=== PATIENT | female | born 1940 | race Caucasian/White ===

== ENCOUNTER 2023-08-08 08:25 | Inpatient (IN) ==
[2023-08-08 09:34] LABS: Hematocrit 42.2 % (34.1-44.9); Hemoglobin 13.4 g/dL (11.2-15.7); Mean Cell Volume 87.2 fL (80.0-100.0); Mean Corpuscular HGB Conc 31.8 g/dL (31.0-36.0); Platelet Count 251 K/mcL (140-440); RBC 4.84 M/mcL (3.59-5.38); Red Cell Distribution Width 15.2 % (11.5-14.5); WBC 3.9 K/mcL (4.5-11.0)
[2023-08-08 09:53] LABS: Eosinophils % (Manual) 5 % (0-7); Lymphocytes % 11 % (15-49); Monocytes % (Manual) 9 % (1-12); Platelet Estimate NORMAL (Normal); RBC Morphology NORMAL (Normal); Reactive Lymphocytes 3 % (0-2); Segmented Neutrophils % 72 % (38-78)
[2023-08-08 10:27] LABS: Prothrombin Time 13.3 sec (11.9-14.5)
[2023-08-08 11:06] LABS: ALT/SGPT 34 U/L (<40); AST/SGOT 32 U/L (<32); Albumin 3.6 gm/dL (3.2-5.2); Albumin/Globulin Ratio 1.2 (1.0-2.3); Alkaline Phosphatase 162 U/L (39-117); Bilirubin,Total 0.4 mg/dL (0.1-1.0); Blood Urea Nitrogen 17 mg/dL (8-23); Calcium 9.4 mg/dL (8.6-10.4); Carbon Dioxide 34 mmol/L (22-30); Chloride 82 mmol/L (96-108); Globulin 3.1 gm/dL (2.2-3.7); Glomerular Filtration Rate 90; Glucose 112 mg/dL (70-105)
[2023-08-08] MEDS: FUROSEMIDE 100 MG/10 ML VIAL IV ONE (11:58)
[2023-08-08 13:15] LABS: Appearance,Urine Clear (Clear); Bacteria,Urine Many /hpf (0); Bilirubin,Urine Negative (Negative); Color,Urine Yellow; Culture Indicated,Urine Yes; Glucose,Urine (UA) Negative (Negative); Ketones,Urine Negative (Negative); Leukocyte Esterase,Urine Negative /uL (Negative); Nitrate,Urine Negative (Negative); PH,Urine 6.5 (5.0-9.0); Protein,Urine 30 mg/dL (Negative); Urine Blood Trace-intact ery/mcL (Negative); Urine RBC 2 /hpf (0-3); Urine Squamous Epithelial Cell 0 /hpf (0-4); Urine WBC 1 /hpf (0-4); Urobilinogen,Urine Normal
[2023-08-08] MEDS: cefTRIAXone 1 GM VIAL IM SCH (14:56)
[2023-08-08] MEDS ORDERED: ONDANSETRON 4 MG/2 ML VIAL IV PRN (16:08)
[2023-08-08] MEDS ORDERED: SENNOSIDES 1 TABLET PO PRN (16:08)
[2023-08-08] MEDS ORDERED: BISACODYL 10 MG SUPP.RECT PR PRN (16:08)
[2023-08-08 17:40] LABS: Phosphorous 3.4 mg/dL (2.5-4.5)
[2023-08-08] MEDS: FUROSEMIDE 100 MG/10 ML VIAL IV SCH (19:33)
[2023-08-08] MEDS: 0.9 % SODIUM CHLORIDE 10 ML SYRINGE IV SCH (21:10)
[2023-08-08] MEDS: HEPARIN 5,000 UNIT/ML VIAL SQ SCH (21:10)
[2023-08-08] MEDS ORDERED: 0.9 % SODIUM CHLORIDE 10 ML SYRINGE IV SCH (22:00)
[2023-08-08] MEDS: DOCUSATE SODIUM 100 MG CAPSULE PO SCH (22:22)
[2023-08-09 06:11] LABS: Basophils # (Auto) 0.03 K/mcL (0.00-0.30); Basophils % (Auto) 0.7 % (0.0-2.0); Eosinophils # (Auto) 0.21 K/mcL (0.00-0.70); Eosinophils % (Auto) 5.2 % (0.0-7.0); Hematocrit 42.5 % (34.1-44.9); Hemoglobin 13.2 g/dL (11.2-15.7); Lymphocytes # (Auto) 0.43 K/mcL (1.50-4.80); Lymphocytes % (Auto) 10.6 % (15.5-49.0); Mean Cell Volume 88.9 fL (80.0-100.0); Mean Corpuscular HGB Conc 31.1 g/dL (31.0-36.0); Mean Platelet Volume 8.6 fL (8.8-12.5); Monocytes # (Auto) 0.53 K/mcL (0.10-0.90); Monocytes % (Auto) 13.1 % (1.0-12.0); Neutrophils % (Auto) 70.2 % (38.0-78.0); Platelet Count 214 K/mcL (140-440); RBC 4.78 M/mcL (3.59-5.38); Red Cell Distribution Width 15.2 % (11.5-14.5); WBC 4.1 K/mcL (4.5-11.0)
[2023-08-09 06:18] LABS: Amphetamine Screen,Urine None detected; Barbiturate Screen,Urine None detected; Benzodiazepines Screen,Urine None detected; Cannabinoid Screen,Urine None detected; Cocaine Screen,Urine None detected; Opiate Screen,Urine None detected; Oxycodone, Urine Screen None detected; Phencyclidine Screen,Urine None detected
[2023-08-09 06:40] LABS: ALT/SGPT 26 U/L (<40); AST/SGOT 28 U/L (<32); Albumin 3.4 gm/dL (3.2-5.2); Albumin/Globulin Ratio 1.2 (1.0-2.3); Alkaline Phosphatase 155 U/L (39-117); Bilirubin,Total 0.4 mg/dL (0.1-1.0); Blood Urea Nitrogen 12 mg/dL (8-23); Carbon Dioxide 42 mmol/L (22-30); Chloride 79 mmol/L (96-108); Globulin 2.9 gm/dL (2.2-3.7); Glomerular Filtration Rate 85; Glucose 90 mg/dL (70-105)
[2023-08-09] MEDS: POTASSIUM CHLORIDE 20 MEQ TABLET PO ONE (07:41)
[2023-08-09] MEDS: POTASSIUM CHLORIDE 40 MEQ in DEXTROSE 5% IN WATER 500 ML IV ONE (08:21)
[2023-08-09] MEDS: risperiDONE 0.25 MG TABLET PO SCH (09:20)
[2023-08-09] MEDS: LOSARTAN 25 MG TABLET PO SCH (09:22)
[2023-08-09] MEDS: MULTIVIT,THER IRON,CA,FA & MIN 1 TABLET PO SCH (09:22)
[2023-08-09] MEDS: FISH OIL 1,000 MG CAPSULE PO SCH (09:23)
[2023-08-10 07:13] LABS: Basophils # (Auto) 0.03 K/mcL (0.00-0.30); Basophils % (Auto) 0.7 % (0.0-2.0); Eosinophils # (Auto) 0.15 K/mcL (0.00-0.70); Eosinophils % (Auto) 3.5 % (0.0-7.0); Hematocrit 40.4 % (34.1-44.9); Hemoglobin 12.6 g/dL (11.2-15.7); Lymphocytes # (Auto) 0.54 K/mcL (1.50-4.80); Lymphocytes % (Auto) 12.5 % (15.5-49.0); Mean Corpuscular HGB Conc 31.2 g/dL (31.0-36.0); Mean Platelet Volume 8.8 fL (8.8-12.5); Monocytes # (Auto) 0.62 K/mcL (0.10-0.90); Monocytes % (Auto) 14.4 % (1.0-12.0); Neutrophils % (Auto) 68.9 % (38.0-78.0); Platelet Count 239 K/mcL (140-440); RBC 4.54 M/mcL (3.59-5.38); Red Cell Distribution Width 15.4 % (11.5-14.5); WBC 4.3 K/mcL (4.5-11.0)
[2023-08-10 08:57] LABS: ALT/SGPT 17 U/L (<40); AST/SGOT 22 U/L (<32); Albumin 3.3 gm/dL (3.2-5.2); Albumin/Globulin Ratio 1.2 (1.0-2.3); Alkaline Phosphatase 139 U/L (39-117); Bilirubin,Total 0.4 mg/dL (0.1-1.0); Blood Urea Nitrogen 15 mg/dL (8-23); Carbon Dioxide 42 mmol/L (22-30); Chloride 80 mmol/L (96-108); Globulin 2.7 gm/dL (2.2-3.7); Glomerular Filtration Rate 81; Glucose 97 mg/dL (70-105)
[2023-08-10] MEDS: cefTRIAXone 1 GM VIAL IV SCH (09:31)
[2023-08-10] MEDS: POTASSIUM CHLORIDE 20 MEQ TABLET PO ONE (09:37)
[2023-08-10] MEDS: acetaZOLAMIDE SOD 500 MG VIAL IV ONE ×2 (15:00→16:03)
[2023-08-10] MEDS: SODIUM CHLORIDE NASAL 1 SPRAY BOTTLE NAS PRN (16:03)
[2023-08-10] MEDS: LOSARTAN 25 MG TABLET PO SCH (20:35)
[2023-08-10] MEDS: LACTULOSE 20 GM/30 ML ORAL.SOL PO PRN (20:35)
[2023-08-11 06:24] LABS: Basophils # (Auto) 0.02 K/mcL (0.00-0.30); Basophils % (Auto) 0.4 % (0.0-2.0); Eosinophils # (Auto) 0.12 K/mcL (0.00-0.70); Eosinophils % (Auto) 2.6 % (0.0-7.0); Hemoglobin 12.4 g/dL (11.2-15.7); Lymphocytes # (Auto) 0.71 K/mcL (1.50-4.80); Lymphocytes % (Auto) 15.1 % (15.5-49.0); Mean Cell Volume 89.7 fL (80.0-100.0); Mean Platelet Volume 8.3 fL (8.8-12.5); Monocytes # (Auto) 0.62 K/mcL (0.10-0.90); Monocytes % (Auto) 13.2 % (1.0-12.0); Neutrophils % (Auto) 68.5 % (38.0-78.0); Platelet Count 226 K/mcL (140-440); RBC 4.46 M/mcL (3.59-5.38); Red Cell Distribution Width 15.6 % (11.5-14.5); WBC 4.7 K/mcL (4.5-11.0)
[2023-08-11 07:23] LABS: ALT/SGPT 13 U/L (<40); AST/SGOT 21 U/L (<32); Albumin 3.2 gm/dL (3.2-5.2); Albumin/Globulin Ratio 1.1 (1.0-2.3); Alkaline Phosphatase 135 U/L (39-117); Bilirubin,Direct < 0.2 mg/dL (0-0.3); Bilirubin,Total 0.3 mg/dL (0.1-1.0); Blood Urea Nitrogen 19 mg/dL (8-23); Calcium 9.3 mg/dL (8.6-10.4); Carbon Dioxide 42 mmol/L (22-30); Chloride 83 mmol/L (96-108); Globulin 2.9 gm/dL (2.2-3.7); Glomerular Filtration Rate 81; Glucose 110 mg/dL (70-105); Lactate Dehydrogenase 192 U/L (135-225); Phosphorous 2.8 mg/dL (2.5-4.5); Triglycerides 72 mg/dL (<150); Uric Acid 5.6 mg/dL (2.5-8.0)
[2023-08-11] MEDS: acetaZOLAMIDE SOD 500 MG VIAL IV ONE (08:44)
[2023-08-11] MEDS: METOPROLOL SUCCINATE 50 MG TAB.XL.24H PO SCH (09:41)
[2023-08-11] MEDS: POTASSIUM CHLORIDE 20 MEQ TABLET PO ONE (09:54)
[2023-08-12 06:22] LABS: ALT/SGPT 15 U/L (<40); AST/SGOT 24 U/L (<32); Albumin 3.2 gm/dL (3.2-5.2); Albumin/Globulin Ratio 1.1 (1.0-2.3); Alkaline Phosphatase 127 U/L (39-117); Bilirubin,Direct < 0.2 mg/dL (0-0.3); Bilirubin,Total 0.4 mg/dL (0.1-1.0); Blood Urea Nitrogen 20 mg/dL (8-23); Calcium 9.4 mg/dL (8.6-10.4); Carbon Dioxide 39 mmol/L (22-30); Chloride 88 mmol/L (96-108); Glomerular Filtration Rate 81; Glucose 131 mg/dL (70-105); Lactate Dehydrogenase 201 U/L (135-225); Phosphorous 2.9 mg/dL (2.5-4.5); Triglycerides 53 mg/dL (<150); Uric Acid 5.7 mg/dL (2.5-8.0)
[2023-08-12] MEDS: acetaZOLAMIDE SOD 500 MG VIAL IV SCH (08:00)
[2023-08-12] MEDS: ACETAMINOPHEN 325 MG TABLET PO PRN (08:01)
[2023-08-12] MEDS: METOPROLOL SUCCINATE 50 MG TAB.XL.24H PO SCH (08:37)
[2023-08-12] MEDS: FUROSEMIDE 100 MG/10 ML VIAL IV SCH (09:53)
[2023-08-12] MEDS: POTASSIUM CHLORIDE 20 MEQ PACKET PO SCH (10:15)
[2023-08-13 07:26] LABS: ALT/SGPT 16 U/L (<40); AST/SGOT 27 U/L (<32); Albumin 3.2 gm/dL (3.2-5.2); Alkaline Phosphatase 120 U/L (39-117); Bilirubin,Direct < 0.2 mg/dL (0-0.3); Bilirubin,Total 0.3 mg/dL (0.1-1.0); Blood Urea Nitrogen 22 mg/dL (8-23); Calcium 9.6 mg/dL (8.6-10.4); Carbon Dioxide 38 mmol/L (22-30); Chloride 92 mmol/L (96-108); Globulin 3.2 gm/dL (2.2-3.7); Glomerular Filtration Rate 85; Glucose 108 mg/dL (70-105); Lactate Dehydrogenase 200 U/L (135-225); Phosphorous 3.1 mg/dL (2.5-4.5); Triglycerides 59 mg/dL (<150); Uric Acid 6.2 mg/dL (2.5-8.0)
[2023-08-13] MEDS: SPIRONOLACTONE 25 MG TABLET PO ONE (08:28)
[2023-08-13] MEDS: acetaZOLAMIDE SOD 500 MG VIAL IV ONE (08:29)
[2023-08-14 06:33] LABS: Blood Urea Nitrogen 22 mg/dL (8-23); Calcium 9.9 mg/dL (8.6-10.4); Carbon Dioxide 37 mmol/L (22-30); Chloride 96 mmol/L (96-108); Glomerular Filtration Rate 85; Glucose 108 mg/dL (70-105)
[2023-08-14] MEDS: POTASSIUM CHLORIDE 20 MEQ TABLET PO ONE (08:26)
[2023-08-14] MEDS: SPIRONOLACTONE 25 MG TABLET PO SCH (09:57)
[2023-08-14] MEDS: acetaZOLAMIDE SOD 500 MG VIAL IV ONE (09:58)
[2023-08-15] MEDS ORDERED: risperiDONE 0.25 MG TABLET PO SCH (09:00)
== END 2023-08-14 12:03 | DRG 291 ==
LOC: ED 08:25 → ICU 15:50
PROVIDERS: ADMIT Student in an Organized Health Care Education/Training Program; ATTEND Internal Medicine

== ENCOUNTER 2023-11-24 09:43 | Inpatient (IN) ==
[2023-11-24] MEDS ORDERED: IOPAMIDOL 100 ML BOTTLE IV ONE (09:44)
[2023-11-24] MEDS: NOREPINEPHRINE 250 ML IV SCH ×2 (09:54→16:34)
[2023-11-24] MEDS ORDERED: EPINEPHrine 4 MG in 0.9 % SODIUM CHLORIDE 246 ML IV SCH (10:00)
[2023-11-24] MEDS: NOREPINEPHRINE 250 ML IV ONE (10:07)
[2023-11-24] MEDS: 0.9 % SODIUM CHLORIDE 250 ML IV SCH ×4 (10:07→16:34)
[2023-11-24 10:33] LABS: Basophils # (Auto) 0.01 K/mcL (0.00-0.30); Basophils % (Auto) 0.1 % (0.0-2.0); Eosinophils # (Auto) 0.03 K/mcL (0.00-0.70); Eosinophils % (Auto) 0.4 % (0.0-7.0); Hematocrit 33.1 % (34.1-44.9); Hemoglobin 9.2 g/dL (11.2-15.7); Lymphocytes # (Auto) 1.07 K/mcL (1.50-4.80); Lymphocytes % (Auto) 15.7 % (15.5-49.0); Mean Cell Volume 102.5 fL (80.0-100.0); Mean Corpuscular HGB Conc 27.8 g/dL (31.0-36.0); Mean Platelet Volume 8.8 fL (8.8-12.5); Monocytes # (Auto) 0.88 K/mcL (0.10-0.90); Monocytes % (Auto) 12.9 % (1.0-12.0); Neutrophils % (Auto) 70.2 % (38.0-78.0); Platelet Count 224 K/mcL (140-440); RBC 3.23 M/mcL (3.59-5.38); Red Cell Distribution Width 15.9 % (11.5-14.5); WBC 6.8 K/mcL (4.5-11.0)
[2023-11-24 10:45] LABS: Prothrombin Time 13.3 sec (11.9-14.5)
[2023-11-24] MEDS: ROCURONIUM 10 MG/ML ML IV ONE (10:45)
[2023-11-24] MEDS: ETOMIDATE 20 MG/10 ML VIAL IV ONE (10:45)
[2023-11-24] MEDS: MIDAZOLAM HCL 50 MG in 0.9 % SODIUM CHLORIDE 90 ML IV SCH (11:00)
[2023-11-24 11:02] LABS: Thyroid Stimulating Hormone 6.66 uIU/mL (0.27-5.01)
[2023-11-24 11:06] LABS: ALT/SGPT 23 U/L (<40); AST/SGOT 41 U/L (<32); Albumin 3.4 gm/dL (3.2-5.2); Albumin/Globulin Ratio 1.1 (1.0-2.3); Alkaline Phosphatase 211 U/L (39-117); Bilirubin,Total < 0.2 mg/dL (0.1-1.0); Blood Urea Nitrogen 15 mg/dL (8-23); Calcium 9.9 mg/dL (8.6-10.4); Carbon Dioxide 42 mmol/L (22-30); Chloride 97 mmol/L (96-108); Glomerular Filtration Rate 47; Glucose 169 mg/dL (70-105); Potassium 4.1 mmol/L (3.3-5.1); Sodium 145 mmol/L (133-145)
[2023-11-24 11:43] LABS: Free T4 (Free Thyroxine) 0.98 ng/dL (0.93-1.70)
[2023-11-24] MEDS: fentaNYL 2,500 MCG in 0.9 % SODIUM CHLORIDE 200 ML IV SCH (11:57)
[2023-11-24 12:06] LABS: Appearance,Urine Slightly Cloudy (Clear); Bacteria,Urine Few /hpf (0); Bilirubin,Urine Negative (Negative); Color,Urine Yellow; Glucose,Urine (UA) Negative (Negative); Ketones,Urine Negative (Negative); Leukocyte Esterase,Urine Small /uL (Negative); Mucus,Urine Few /hpf; Nitrate,Urine Negative (Negative); Protein,Urine 100 mg/dL (Negative); Urine Blood Small ery/mcL (Negative); Urine Hyaline Cast 2 /lph (0-2); Urine RBC 3 /hpf (0-3); Urine Squamous Epithelial Cell < 1 /hpf (0-4); Urine Transitional Epi Cells < 1 /hpf (0-2); Urine WBC 56 /hpf (0-4); Urobilinogen,Urine Normal
[2023-11-24] MEDS: LEVOFLOXACIN 750 MG/150 ML BAG IV ONE (12:10)
[2023-11-24] MEDS: LACTULOSE 20 GM/30 ML ORAL.SOL PO SCH ×2 (13:50→16:36)
[2023-11-24] MEDS: PANTOPRAZOLE 40 MG VIAL IV ONE (15:20)
[2023-11-24] MEDS: PANTOPRAZOLE 80 MG in 0.9 % SODIUM CHLORIDE 100 ML IV SCH (15:55)
[2023-11-24] MEDS: cefTRIAXone 2 GM in DEXTROSE 5% IN WATER 50 ML IV SCH (16:30)
[2023-11-24] MEDS: 0.9 % SODIUM CHLORIDE 250 ML ONE (16:31)
[2023-11-24] MEDS: PROPOFOL 1,000 MG in PREMIX 1 BAG IV ONE (16:32)
[2023-11-24] MEDS: PROPOFOL 100 ML IV ONE (16:33)
[2023-11-24] MEDS ORDERED: ACETAMINOPHEN 325 MG TABLET PO PRN (17:58)
[2023-11-24] MEDS: fentaNYL 100 MCG/2 ML VIAL IV PRN (19:00)
[2023-11-24 19:06] LABS: ALT/SGPT 38 U/L (<40); AST/SGOT 73 U/L (<32); Albumin 3.3 gm/dL (3.2-5.2); Alkaline Phosphatase 223 U/L (39-117); Bilirubin,Direct 0.2 mg/dL (<0.3); Bilirubin,Total 0.3 mg/dL (0.1-1.0); Blood Urea Nitrogen 18 mg/dL (8-23); Calcium 9.6 mg/dL (8.6-10.4); Carbon Dioxide 36 mmol/L (22-30); Chloride 96 mmol/L (96-108); Globulin 3.3 gm/dL (2.2-3.7); Glomerular Filtration Rate 60; Glucose 99 mg/dL (70-105); Lactate Dehydrogenase 347 U/L (135-225); Phosphorous 2.2 mg/dL (2.5-4.5); Potassium 3.8 mmol/L (3.3-5.1); Sodium 143 mmol/L (133-145); Triglycerides 111 mg/dL (<150); Uric Acid 6.3 mg/dL (2.5-8.0)
[2023-11-24] MEDS ORDERED: levETIRAcetam 1,000 MG in 0.9 % SODIUM CHLORIDE 100 ML IV SCH (21:00)
[2023-11-24] MEDS: 0.9 % SODIUM CHLORIDE 10 ML SYRINGE IV SCH (21:46)
[2023-11-24] MEDS ORDERED: ACETAMINOPHEN 1,000 MG/100 ML BAG IV PRN (22:04)
[2023-11-25] MEDS: PANTOPRAZOLE 40 MG VIAL IV SCH (00:31)
[2023-11-25] MEDS: PROPOFOL 1,000 MG in PREMIX 1 BAG IV SCH (00:35)
[2023-11-25] MEDS: PROPOFOL 100 ML IV ONE (00:52)
[2023-11-25] MEDS: NOREPINEPHRINE BITARTRATE 8 MG in 0.9 % SODIUM CHLORIDE 242 ML IV SCH (04:05)
[2023-11-25] MEDS ORDERED: VANCOMYCIN PER PHARMACY IV SCH (07:46)
[2023-11-25 08:56] LABS: Basophils # (Auto) 0.02 K/mcL (0.00-0.30); Basophils % (Auto) 0.4 % (0.0-2.0); Eosinophils # (Auto) 0.04 K/mcL (0.00-0.70); Eosinophils % (Auto) 0.8 % (0.0-7.0); Hematocrit 29.4 % (34.1-44.9); Hemoglobin 8.9 g/dL (11.2-15.7); Lymphocytes # (Auto) 0.77 K/mcL (1.50-4.80); Lymphocytes % (Auto) 14.6 % (15.5-49.0); Mean Cell Volume 94.5 fL (80.0-100.0); Mean Corpuscular HGB Conc 30.3 g/dL (31.0-36.0); Mean Platelet Volume 9.1 fL (8.8-12.5); Monocytes # (Auto) 0.72 K/mcL (0.10-0.90); Monocytes % (Auto) 13.6 % (1.0-12.0); Platelet Count 182 K/mcL (140-440); RBC 3.11 M/mcL (3.59-5.38); Red Cell Distribution Width 16.2 % (11.5-14.5); WBC 5.3 K/mcL (4.5-11.0)
[2023-11-25] MEDS: CHLORHEXIDINE GLUCONATE 15 ML UDC SWABMOUTH SCH (09:00)
[2023-11-25 09:08] LABS: ALT/SGPT 29 U/L (<40); AST/SGOT 62 U/L (<32); Albumin 3.3 gm/dL (3.2-5.2); Albumin/Globulin Ratio 1.2 (1.0-2.3); Alkaline Phosphatase 206 U/L (39-117); Bilirubin,Direct < 0.2 mg/dL (0-0.3); Bilirubin,Total 0.2 mg/dL (0.1-1.0); Blood Urea Nitrogen 17 mg/dL (8-23); Calcium 9.8 mg/dL (8.6-10.4); Carbon Dioxide 38 mmol/L (22-30); Chloride 99 mmol/L (96-108); Globulin 2.8 gm/dL (2.2-3.7); Glomerular Filtration Rate 52; Glucose 120 mg/dL (70-105); Lactate Dehydrogenase 240 U/L (135-225); Phosphorous 1.7 mg/dL (2.5-4.5); Potassium 2.6 mmol/L (3.3-5.1); Sodium 147 mmol/L (133-145); Triglycerides 133 mg/dL (<150); Uric Acid 6.2 mg/dL (2.5-8.0)
[2023-11-25] MEDS: VANCOMYCIN 1,250 MG in 0.9 % SODIUM CHLORIDE 500 ML IV SCH (09:31)
[2023-11-25] MEDS ORDERED: ONDANSETRON 4 MG/2 ML VIAL IV PRN (12:52)
[2023-11-25] MEDS ORDERED: ALBUTEROL SULFATE 2.5 MG/3 ML NEBULIZER NEB PRN (12:52)
[2023-11-25] MEDS: 0.9 % SODIUM CHLORIDE 10 ML SYRINGE IV SCH (14:00)
[2023-11-25] MEDS: LORazepam 2 MG/ML VIAL IV PRN (14:03)
[2023-11-25] MEDS: POTASSIUM CHLORIDE 40 MEQ in DEXTROSE 5% IN WATER 500 ML IV SCH (16:33)
[2023-11-25] MEDS: HYDROmorphone 0.5 MG/0.5 ML SYRINGE IV PRN (18:39)
== END 2023-11-25 23:35 | disposition expired | DRG 208 ==
LOC: ED 09:43 → ICU 15:18
PROVIDERS: ADMIT Internal Medicine; ATTEND Internal Medicine